=== PATIENT | female | born 1990 | race Caucasian/White ===

== ENCOUNTER 2016-08-02 08:40 | Emergency (ER) | payer BC ==
[2016-08-02 08:45] VITALS: BP 121/75
[2016-08-02] MEDS ORDERED: IBUPROFEN 800 MG TABLET PO ONE (09:38)
[2016-08-02 10:33] LABS: ABSOLUTE EOSINOPHILS # (AUTO) 0.1 10^3/uL (0.0-0.6); ABSOLUTE LYMPHOCYTES (AUTO) 1.5 10^3/uL (0.5-4.7); ABSOLUTE MONOCYTES (AUTO) 1.3 10^3/uL (0.1-1.4); ABSOLUTE NEUT (AUTO) 14.3 10^3/uL (1.7-8.2); BASOPHILS % (AUTO) 0.2 % (0-2); EOSINOPHILS % (AUTO) 0.3 % (0-6); HEMOGLOBIN 12.2 g/dL (12.0-15.5); HGB HCT DIFFERENCE 0.6; LYMPHOCYTES % (AUTO) 8.7 % (13-45); MEAN CORPUSCULAR HEMOGLOBIN 29.4 pg (27.0-33.4); MEAN CORPUSCULAR HGB CONC 33.9 g/dL (32.0-36.0); MEAN CORPUSCULAR VOLUME 87 fl (80-97); MONOCYTES % (AUTO) 7.4 % (3-13); RED BLOOD COUNT 4.15 10^6/uL (3.72-5.28); RED CELL DISTRIBUTION WIDTH 12.4 % (11.5-14.0); SEGMENTED NEUTROPHILS % (AUTO) 83.4 % (42-78); WHITE BLOOD COUNT 17.2 10^3/uL (4.0-10.5)
[2016-08-02 10:41] LABS: APPEARANCE,URINE SLIGHTLY-CLOUDY; BILIRUBIN,URINE NEGATIVE (NEGATIVE); GLUCOSE, URINE NEGATIVE (NEGATIVE); KETONES,URINE 20 mg/dL (NEGATIVE); LEUKOCYTE ESTERASE,URINE MODERATE (NEGATIVE); NITRITE,URINE NEGATIVE (NEGATIVE); PROTEIN,URINE NEGATIVE (NEGATIVE); URINE SPECIFIC GRAVITY 1.024; UROBILINOGEN,URINE NEGATIVE mg/dL (<2.0)
[2016-08-02 10:49] LABS: ALANINE AMINOTRANSFERASE 17 U/L (9-52); ALKALINE PHOSPHATASE 76 U/L (38-126); ANION GAP 11 (5-19); ASPARTATE AMINO TRANSFERASE 11 U/L (14-36); BILIRUBIN,TOTAL 0.7 mg/dL (0.2-1.3); BLOOD UREA NITROGEN 11 mg/dL (7-20); CALCIUM 9.4 mg/dL (8.4-10.2); CARBON DIOXIDE 26 mmol/L (22-30); CHLORIDE 101 mmol/L (98-107); CREATININE RESULT 0.68 mg/dL (0.52-1.25); GLUCOSE 97 mg/dL (75-110); LIPASE 45.9 U/L (23-300); POTASSIUM 4.6 mmol/L (3.6-5.0); SODIUM 137.6 mmol/L (137-145); TOTAL PROTEIN 7.1 g/dL (6.3-8.2)
--- NOTE | 2016-08-02 10:54 | ER Document Report ---
ED GI/ - General Chief Complaint: Abdominal Cramping Stated Complaint: STOMACH PAIN Mode of Arrival: Ambulatory Information source: Patient Notes: Patient reports one-week history of lower pelvic pain that has been off and on but has worsened recently. Patient denies any fever, or urinary symptoms. Patient states she was seen by her behavioral sciences instructor yesterday and had pelvic examination and was placed on Flagyl. Patient denies any concerns about STD. TRAVEL OUTSIDE OF THE [place] IN LAST 30 DAYS: No - HPI Patient complains to provider of: Pelvic pain, Vaginal discharge. No: Vaginal bleeding Onset: Last week Timing/Duration: Persistent Quality of pain: Cramping Pain Level: 3 Context: denies: Location: Pelvis Vaginal bleeding (Compared to normal period): None Sexual history: Active Associated symptoms: Vaginal discharge. 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 denies: Fever, Recent illness EENT: No symptoms reported Cardiovascular: No symptoms reported. denies: Chest pain Respiratory: No symptoms reported. denies: Cough Gastrointestinal: Abdominal pain. denies: Nausea, Vomiting Genitourinary: No symptoms reported. denies: Dysuria, Flank pain Female Genitourinary: Vaginal discharge. denies: , Vaginal bleeding Musculoskeletal: No symptoms reported. denies: Back pain Skin: No symptoms reported Hematologic/Lymphatic: No symptoms reported Neurological/Psychological: No symptoms reported Physical Exam - Vital signs Vitals: Temp Pulse Resp BP Pulse Ox 98.8 F 113 H 16 121/75 98 08/02/16 08:44 08/02/16 08:44 08/02/16 08:44 08/02/16 08:44 08/02/16 08:44 - General General appearance: Appears well, Alert In distress: None - HEENT Head: Normocephalic, Atraumatic Eyes: Normal Nasal: Normal Mouth/Lips: Normal Mucous membranes: Normal Neck: Normal, Supple. No: Lymphadenopathy - Respiratory Respiratory status: No respiratory distress Chest status: Nontender Breath sounds: Normal Chest palpation: Normal - Cardiovascular Rhythm: Tachycardia Heart sounds: S1 appreciated, S2 appreciated Murmur: No - Abdominal Inspection: Normal Distension: No distension Bowel sounds: Normal Tenderness: Tender - Lower pelvic, worse to left lower quadrant Organomegaly: No organomegaly - Genitourinary External exam: Normal Speculum exam: Cervix closed, Vaginal discharge Vaginal bleeding: None Bimanuel exam: Cervical motion tender, Adnexal tenderness - Left adnexal tenderness - Back Back: Normal, Nontender. No: CVA tenderness - Extremities General upper extremity: Normal inspection, Normal strength General lower extremity: Normal inspection, Normal strength - Neurological Neuro grossly intact: Yes Cognition: Normal Fabio Coma Scale Eye Opening: Spontaneous [place] Coma Scale Verbal: Oriented [place] Coma Scale Motor: Obeys Commands [place] Coma Scale Total: 15 - Psychological Associated symptoms: Normal affect, Normal mood - Skin Skin Temperature: Warm Skin Moisture: Dry Skin Color: Normal Course - Re-evaluation Re-evalutation: 08/02/16 10:[address] Thurman who agrees with plan for ultrasound imaging - Vital Signs Vital signs: Temp Pulse Resp BP Pulse Ox 98.8 F 113 H 16 121/75 98 08/02/16 08:44 08/02/16 08:44 08/02/16 08:44 08/02/16 08:44 08/02/16 08:44 - Laboratory Result Diagrams: 08/02/16 10:15 08/02/16 10:15 Laboratory results interpreted by me: 08/02/16 08/02/16 08/02/16 10:15 10:15 10:15 WBC 17.2 H Seg Neutrophils % 83.4 H Lymphocytes % 8.7 L Absolute Neutrophils 14.3 H AST 11 L Urine Ketones 20 H Ur Leukocyte Esterase MODERATE H 08/02/16 12:55 Labs- Entire Visit 08/02/16 08/02/16 08/02/16 10:15 10:15 10:15 WBC 17.2 H RBC 4.15 Hgb 12.2 Hct 36.0 MCV 87 MCH 29.4 MCHC 33.9 RDW 12.4 Plt Count 308 Seg Neutrophils % 83.4 H Lymphocytes % 8.7 L Monocytes % 7.4 Eosinophils % 0.3 Basophils % 0.2 Absolute Neutrophils 14.3 H Absolute Lymphocytes 1.5 Absolute Monocytes 1.3 Absolute Eosinophils 0.1 Absolute Basophils 0.0 Sodium 137.6 Potassium 4.6 Chloride 101 Carbon Dioxide 26 Anion Gap 11 BUN 11 Creatinine 0.68 Est GFR ( Amer) > 60 Est GFR (Non-Af Amer) > 60 Glucose 97 Calcium 9.4 Total Bilirubin 0.7 Direct Bilirubin 0.0 AST 11 L ALT 17 Alkaline Phosphatase 76 Total Protein 7.1 Albumin 4.0 Lipase 45.9 Serum HCG, Qual NEGATIVE Urine Color Urine Appearance Urine pH Ur Specific [place] Urine Protein Urine Glucose (UA) Urine Ketones Urine Blood Urine Nitrite Urine Bilirubin Urine Urobilinogen Ur Leukocyte Esterase Urine WBC (Auto) Urine RBC (Auto) U Hyaline Cast (Auto) Urine Bacteria (Auto) Squamous Epi Cells Auto Urine Mucus (Auto) Urine Ascorbic Acid Trichomonas (Wet Prep) Vaginal WBC Vaginal RBC Vaginal Yeast Chlamydia DNA (PCR) N.gonorrhoeae DNA (PCR) 08/02/16 08/02/16 08/02/16 10:15 10:30 10:30 WBC RBC Hgb Hct MCV MCH MCHC RDW Plt Count Seg Neutrophils % Lymphocytes % Monocytes % Eosinophils % Basophils % Absolute Neutrophils Absolute Lymphocytes Absolute Monocytes Absolute Eosinophils Absolute Basophils Sodium Potassium Chloride Carbon Dioxide Anion Gap BUN Creatinine Est GFR ( Amer) Est GFR (Non-Af Amer) Glucose Calcium Total Bilirubin Direct Bilirubin AST ALT Alkaline Phosphatase Total Protein Albumin Lipase Serum HCG, Qual Urine Color YELLOW Urine Appearance SLIGHTLY-CLOUDY Urine pH 5.0 Ur Specific [place] 1.024 Urine Protein NEGATIVE Urine Glucose (UA) NEGATIVE Urine Ketones 20 H Urine Blood NEGATIVE Urine Nitrite NEGATIVE Urine Bilirubin NEGATIVE Urine Urobilinogen NEGATIVE Ur Leukocyte Esterase MODERATE H Urine WBC (Auto) 12 Urine RBC (Auto) 2 U Hyaline Cast (Auto) 1 Urine Bacteria (Auto) TRACE Squamous Epi Cells Auto 3 Urine Mucus (Auto) MANY Urine Ascorbic Acid NEGATIVE Trichomonas (Wet Prep) NO TRICHOMONAS SEEN Vaginal WBC 3+ WBCS SEEN Vaginal RBC NO RBCS SEEN Vaginal Yeast NO YEAST SEEN Chlamydia DNA (PCR) NOT DETECTED N.gonorrhoeae DNA (PCR) NOT DETECTED 08/02/16 14:21 - Diagnostic Test Radiology reviewed: Reports reviewed Discharge - Discharge Clinical Impression: PID (acute pelvic inflammatory disease), Hydrosalpinx, Vaginal discharge Ovarian cyst Qualifiers: Laterality: left Qualified Code(s): N83.202 - Unspecified ovarian cyst, left side Condition: Stable Disposition: HOME, SELF-CARE Instructions: Pelvic Inflammatory Disease ([facility]), Rocephin ([facility]), Doxycycline ( [facility]), Ovarian Cyst ([facility]), Oral Narcotic Medication ([facility]) Additional Instructions: Return immediately for any new or worsening symptoms, increased pain, fever, vomiting, or any concerning symptoms Followup with your primary care provider, call tomorrow to make a followup appointment Follow-up with your behavioral sciences instructor on Friday for recheck. Prescriptions: Doxycycline Hyclate 100 mg PO BID #28 capsule Hydrocodone/Acetaminophen [Carmel 5-325 Tablet] 1 each PO Q4 PRN #10 tablet PRN Reason: Forms: Return to Work Referrals: VITA LICEA MD [Primary Care Provider] - 08/05/16
[2016-08-02 12:15] LABS: CHLAM PCR NOT DETECTED (NOT DETECT)
[2016-08-02] MEDS ORDERED: LIDOCAINE 1% INJ-PF (10 MG/ML) 30 ML SDV INJ ONE (12:54)
[2016-08-02] MEDS ORDERED: DOXYCYCLINE HYCLATE 100 MG TABLET PO ONE (12:54)
[2016-08-02] MEDS ORDERED: CEFTRIAXONE INJ 1000 MG VIAL IM ONE (12:54)
== END 2016-08-02 13:48 | disposition home or self-care (01) ==
LOC: ER 08:40
DX: N73.9 Female pelvic inflammatory disease, unspecified (principal); N83.202 Unspecified ovarian cyst, left side; R10.9 Unspecified abdominal pain; R10.2 Pelvic and perineal pain
CPT/HCPCS: 99284; 96372; 36415; 87210; 83690; 84703; 85025; 80053; 81001; 87491; 87591; 76830; 93976; J3490; J0696

== ENCOUNTER 2016-08-03 12:27 | Emergency (ER) | payer BC ==
--- NOTE | 2016-08-03 12:38 | ER Document Report ---
ED Medical Screen (RME) - General Stated Complaint: ABDOMINAL PAIN,VOMITING Time seen by provider: 12:36 Mode of Arrival: Ambulatory Information source: Patient Notes: 25-year-old female diagnosed with pelvic inflammatory infection yesterday in the emergency department and came in today because she feels like she has some side effects from the antibiotics. She has vomited 4 times and she has bad stomach cramping and tenderness. Hurts to laugh or do anything. TRAVEL OUTSIDE OF THE [place] IN LAST 30 DAYS: No - Related Data Allergies/Adverse Reactions: No Known Allergies Allergy (Unverified 08/02/16 08:48) Past Medical History Renal/ Medical History: Denies: Hx Peritoneal Dialysis
[2016-08-03] MEDS ORDERED: ONDANSETRON 4 MG TAB.RAPDIS PO ONE (12:40)
[2016-08-03 13:05] LABS: ABSOLUTE MONOCYTES (AUTO) 0.5 10^3/uL (0.1-1.4); BASOPHILS % (AUTO) 0.1 % (0-2); EOSINOPHILS % (AUTO) 0.2 % (0-6); HEMOGLOBIN 12.3 g/dL (12.0-15.5); HGB HCT DIFFERENCE -0.1; LYMPHOCYTES % (AUTO) 6.3 % (13-45); MEAN CORPUSCULAR HEMOGLOBIN 28.8 pg (27.0-33.4); MEAN CORPUSCULAR HGB CONC 33.4 g/dL (32.0-36.0); MEAN CORPUSCULAR VOLUME 86 fl (80-97); MONOCYTES % (AUTO) 2.9 % (3-13); RED BLOOD COUNT 4.28 10^6/uL (3.72-5.28); RED CELL DISTRIBUTION WIDTH 12.5 % (11.5-14.0); SEGMENTED NEUTROPHILS % (AUTO) 90.5 % (42-78); WHITE BLOOD COUNT 15.5 10^3/uL (4.0-10.5)
[2016-08-03 13:25] LABS: ALANINE AMINOTRANSFERASE 11 U/L (9-52); ALKALINE PHOSPHATASE 71 U/L (38-126); ANION GAP 11 (5-19); ASPARTATE AMINO TRANSFERASE 11 U/L (14-36); BILIRUBIN,TOTAL 0.9 mg/dL (0.2-1.3); BLOOD UREA NITROGEN 12 mg/dL (7-20); CALCIUM 9.9 mg/dL (8.4-10.2); CARBON DIOXIDE 29 mmol/L (22-30); CHLORIDE 100 mmol/L (98-107); CREATININE RESULT 0.68 mg/dL (0.52-1.25); GLUCOSE 129 mg/dL (75-110); SODIUM 140.3 mmol/L (137-145); TOTAL PROTEIN 7.3 g/dL (6.3-8.2)
[2016-08-03 13:43] VITALS: BP 119/74
--- NOTE | 2016-08-03 13:44 | ER Document Report ---
ED General - General Chief Complaint: Abdominal Pain Stated Complaint: ABDOMINAL PAIN,VOMITING Mode of Arrival: Ambulatory Information source: Patient Notes: 25-year-old female who was diagnosed with PID yesterday started on doxycycline presents with complaints of abdominal pain and vomiting after taking antibiotics. Patient denies any fevers or chills notes her pelvic pain has improved significantly. Denies any other concerns TRAVEL OUTSIDE OF THE [place] IN LAST 30 DAYS: No - HPI Onset: Yesterday Onset/Duration: Sudden Quality of pain: Cramping Severity: Mild Pain Level: 1 Associated symptoms: Nausea, Vomiting Exacerbated by: Denies Relieved by: Denies Similar symptoms previously: Yes Recently seen / treated by doctor: Yes - Related Data Allergies/Adverse Reactions: No Known Allergies Allergy (Verified 08/03/16 12:38) Past Medical History - General Information source: Patient - Social History Smoking Status: Never Smoker Cigarette use (# per day): No Chew tobacco use (# tins/day): No Smoking Education Provided: No Frequency of alcohol use: None Drug Abuse: None Family History: Reviewed & Not Pertinent Patient has suicidal ideation: No Patient has homicidal ideation: No Renal/ Medical History: Denies: Hx Peritoneal Dialysis Review of Systems - Review of Systems Notes: REVIEW OF SYSTEMS: CONSTITUTIONAL : Denies fever, chills, or sweats. Denies recent illness. EENT: Denies eye, ear, throat, or mouth pain or symptoms. Denies nasal or sinus congestion or discharge. Denies throat, tongue, or mouth swelling or difficulty swallowing. CARDIOVASCULAR: Denies chest pain. Denies palpitations or racing or irregular heart beat. Denies ankle edema. RESPIRATORY: Denies cough, cold, or chest congestion. Denies shortness of breath, difficulty breathing, or wheezing. GASTROINTESTINAL: Admits to abdominal pain nausea vomiting GENITOURINARY: Denies difficulty urinating, painful urination, burning, frequency, blood in urine, or discharge. FEMALE GENITOURINARY: Denies vaginal bleeding, heavy or abnormal periods, irregular periods. Denies vaginal discharge or odor. MUSCULOSKELETAL: Denies back or neck pain or stiffness. Denies joint pain or swelling. SKIN: Denies rash, lesions or sores. HEMATOLOGIC : Denies easy bruising or bleeding. LYMPHATIC: Denies swollen, enlarged glands. NEUROLOGICAL: Denies confusion or altered mental status. Denies passing out or loss of consciousness. Denies dizziness or lightheadedness. Denies headache. Denies weakness or paralysis or loss of use of either side. Denies problems with gait or speech. Denies sensory loss, numbness, or tingling. Denies seizures. PSYCHIATRIC: Denies anxiety or stress. Denies depression, suicidal ideation, or homicidal ideation. ALL OTHER SYSTEMS REVIEWED AND NEGATIVE. Dictation was performed using [employer] voice recognition software PHYSICAL EXAMINATION: GENERAL: Well-appearing, well-nourished and in no acute distress. HEAD: Atraumatic, normocephalic. EYES: Pupils equal round and reactive to light, extraocular movements intact, conjunctiva are normal. ENT: Nares patent, oropharynx clear without exudates. Moist mucous membranes. NECK: Normal range of motion, supple without lymphadenopathy LUNGS: Breath sounds clear to auscultation bilaterally and equal. No wheezes rales or rhonchi. HEART: Regular rate and rhythm without murmurs ABDOMEN: Soft, generalized tenderness mild no rebound or guarding Female : deferred Musculoskeletal: Normal range of motion, no pitting or edema. No cyanosis. NEUROLOGICAL: Cranial nerves grossly intact. Normal speech, normal gait. Normal sensory, motor exams PSYCH: Normal mood, normal affect. SKIN: Warm, Dry, normal turgor, no rashes or lesions noted. Course - Re-evaluation Re-evalutation: 08/03/16 13:43 It is noted to patient's white count is improving since yesterday, she has no elevated liver enzymes concerning for Young-Tutu Ernie syndrome. I believe patient's nausea vomiting is secondary to doxycycline, she'll be given nausea control is otherwise stable for discharge. Very strict return precautions have been provided to the patient After performing a Medical Screening Examination, I estimate there is LOW risk for ACUTE APPENDICITIS, BOWEL OBSTRUCTION, ACUTE CHOLECYSTITIS, PERFORATED DIVERTICULITIS, INCARCERATED HERNIA, PANCREATITIS, PERFORATED ULCER, ECTOPIC , or TUBO-OVARIAN ABSCESS, thus I consider the discharge disposition reasonable. Also, there is no evidence or peritonitis, sepsis, or toxicity. The patient and I have discussed the diagnosis and risks, and we agree with discharging home with close follow-up with the understanding that symptoms and presentations can change. We also discussed returning to the Emergency Department immediately if new or worsening symptoms occur. We have discussed the symptoms which are most concerning (e.g., bloody stool, fever, changing or worsening pain, vomiting) that necessitate immediate return. - Laboratory Result Diagrams: 08/03/16 12:48 08/03/16 12:48 Laboratory results interpreted by me: 08/03/16 08/03/16 12:48 12:48 WBC 15.5 H Seg Neutrophils % 90.5 H Lymphocytes % 6.3 L Monocytes % 2.9 L Absolute Neutrophils 14.0 H Glucose 129 H AST 11 L - Diagnostic Test Radiology reviewed: Image reviewed Discharge - Discharge Clinical Impression: PID (acute pelvic inflammatory disease) Nausea & vomiting Qualifiers: Vomiting type: unspecified Vomiting Intractability: non-intractable Qualified Code(s): R11.2 - Nausea with vomiting, unspecified Antibiotic reaction Qualifiers: Encounter type: initial encounter Qualified Code(s): T36.95XA - Adverse effect of unspecified systemic antibiotic, initial encounter Condition: Stable Disposition: HOME, SELF-CARE Instructions: Abdominal Pain ([facility]) Additional Instructions: Follow up with your physician tomorrow for further care or return to the ED IMMEDIATELY if symptoms worsen or new concerns occur Prescriptions: Ondansetron [Zofran Odt 4 mg Tablet] 1 - 2 tab PO Q4H PRN #15 tab.rapdis PRN Reason: For Nausea/Vomiting
== END 2016-08-03 13:48 | disposition home or self-care (01) ==
LOC: ER 12:27
DX: R11.2 Nausea with vomiting, unspecified (principal); T36.4X5A Adverse effect of tetracyclines, initial encounter; N73.0 Acute parametritis and pelvic cellulitis; R10.9 Unspecified abdominal pain; R10.817 Generalized abdominal tenderness
CPT/HCPCS: 99284; 36415; 85025; 80053; S0119